=== PATIENT | female | born 1990 | race Asian ===

== ENCOUNTER 2020-04-30 05:52 | Emergency (ER) | payer SELFPAY ==
[~2020-04-30] VITALS: Ht 152.4 cm; Wt 49.9 kg
[2020-04-30 06:02] VITALS: BP 99/64
== END 2020-04-30 07:29 | disposition left against medical advice (07) ==
LOC: ER 05:52
DX: R55 Syncope and collapse (principal); R51 Headache; Z53.21 Procedure and treatment not carried out due to patient leaving prior to being seen by health care provider

== ENCOUNTER 2021-02-05 14:56 | Emergency (ER) | payer SELFPAY ==
[~2021-02-05] VITALS: Ht 152.4 cm; Wt 54.4 kg
[2021-02-05] MEDS ORDERED: SODIUM CHLORIDE 0.9% 1,000 ML IV ONE (15:15)
[2021-02-05 15:46] LABS: Basophils # (auto) 0.1 10 ^3/uL (0-0.2); Basophils % (auto) 0.6 % (0.0-2.0); Eosinophils # (auto) 0.1 10 ^3/uL (0-0.8); Eosinophils % (auto) 0.6 % (0.0-7.0); Hematocrit 41.7 % (36.0-46.0); Hemoglobin 14.1 g/dL (12.2-16.2); Lymphocytes # (auto) 1.4 10 ^3/uL (0.4-5.4); Lymphocytes % (auto) 14.3 % (10.0-50.0); Mean Corpuscular Hemoglobin 28.3 pg (28.0-32.0); Mean Corpuscular Hgb Conc. 33.7 g/dL (32.0-36.0); Mean Corpuscular Volume 83.8 fL (80.0-100.0); Monocytes # (auto) 0.5 10 ^3/uL (0-1.3); Monocytes % (auto) 5.3 % (0.0-12.0); Neutrophils # (auto) 7.5 10 ^3/uL (1.6-8.6); Neutrophils % (auto) 79.2 % (37.0-80.0); Nucleated Red Blood Cells % 0.1 %; Platelet Count (auto) 302 10^3/uL (140-450); Red Blood Cells 4.98 10^6/uL (4.0-5.20); Red Cell Distribution Width 13.4 % (11.8-14.3); White Blood Cell 9.5 10^3/uL (4.4-10.8)
[2021-02-05 15:47] LABS: Albumin 4.2 g/dL (3.4-5.0); Calcium 8.8 mg/dL (8.5-10.1); Potassium 3.9 mmol/L (3.5-5.1)
[2021-02-05 15:51] LABS: BUN/Creatinine Ratio 16.9; Bilirubin, Total 0.6 mg/dL (0.2-1.0); Total Protein 7.5 g/dL (6.4-8.2)
[2021-02-05 17:00] VITALS: BP 105/57
== END 2021-02-05 17:03 | disposition home or self-care (01) ==
LOC: EDBD 14:56 → ER 14:56
DX: F41.9 Anxiety disorder, unspecified (principal)
CPT/HCPCS: 36415; 80053; 85025

== ENCOUNTER 2021-06-16 10:44 | Emergency (ER) | payer SELFPAY ==
[~2021-06-16] VITALS: Ht 157.5 cm; Wt 49.9 kg
[2021-06-16 12:27] VITALS: BP 129/67
== END 2021-06-16 17:20 | disposition home or self-care (01) ==
LOC: ER 10:44
DX: N61.0 Mastitis without abscess (principal); Z88.1 Allergy status to other antibiotic agents
CPT/HCPCS: 76642

== ENCOUNTER 2021-07-30 01:22 | Emergency (ER) | payer MEDICAID ==
[~2021-07-30] VITALS: Ht 152.4 cm; Wt 52.2 kg
[2021-07-30 03:00] VITALS: BP 114/81
[2021-07-30] MEDS ORDERED: ONDANSETRON ODT 4 MG TAB PO ONE (03:45)
[2021-07-30] MEDS ORDERED: SIMETHICONE 80 MG CHEWABLE TABLET PO ONE (03:45)
[2021-07-30] MEDS ORDERED: ALUM & MAG HYDROX-SIMETH LIQ(MAALOX) 30 ML PO ONE (03:45)
== END 2021-07-30 04:26 | disposition home or self-care (01) ==
LOC: ER 01:22
DX: K21.9 Gastro-esophageal reflux disease without esophagitis (principal); R14.1 Gas pain; Z88.1 Allergy status to other antibiotic agents
CPT/HCPCS: 99284; Q0162

== ENCOUNTER 2021-08-02 20:59 | Emergency (ER) | payer MEDICAID ==
[~2021-08-02] VITALS: Ht 152.4 cm; Wt 49.9 kg
[2021-08-03 03:01] VITALS: BP 112/78
== END 2021-08-03 03:15 | disposition home or self-care (01) ==
LOC: ER 20:59
DX: J06.9 Acute upper respiratory infection, unspecified (principal); J02.9 Acute pharyngitis, unspecified; Z20.822 Contact with and (suspected) exposure to COVID-19
CPT/HCPCS: 36415; 87426

== ENCOUNTER 2021-09-02 21:13 | Emergency (ER) | payer MEDICAID ==
[~2021-09-02] VITALS: Ht 152.4 cm; Wt 49.9 kg
[2021-09-02 21:14] VITALS: BP 107/65
== END 2021-09-03 00:49 | disposition left against medical advice (07) ==
LOC: ER 21:16
DX: J02.9 Acute pharyngitis, unspecified (principal); M79.10 Myalgia, unspecified site; Z53.21 Procedure and treatment not carried out due to patient leaving prior to being seen by health care provider

== ENCOUNTER 2021-11-30 20:35 | Emergency (ER) | payer MEDICAID ==
[~2021-11-30] VITALS: Ht 152.4 cm; Wt 49.9 kg
[2021-11-30 21:12] VITALS: BP 125/75
== END 2021-11-30 21:33 | disposition left against medical advice (07) ==
LOC: ER 20:35
DX: R06.02 Shortness of breath (principal); R00.2 Palpitations; R51.9 Headache, unspecified; Z53.21 Procedure and treatment not carried out due to patient leaving prior to being seen by health care provider